=== PATIENT | female | born 1990 | race Hispanic/Latino ===

== ENCOUNTER 2021-01-25 18:26 | Inpatient (IN) | payer OTHER ==
[~2021-01-25] VITALS: Ht 170.2 cm; Wt 110.1 kg
[2021-01-25] MEDS ORDERED: ACET325C5 PO (18:50)
[2021-01-25] MEDS ORDERED: PRENTAB9 PO (18:51)
[2021-01-25] MEDS ORDERED: CALC500C15 PO (18:51)
[2021-01-25 19:28] VITALS: BP 109/67
[2021-01-25 19:39] LABS: HEMOGLOBIN 12.4 g/dl (12.0-15.5); MEAN CORPUSCULAR HEMOGLOBIN 32.4 pg (27.0-33.0); MEAN CORPUSCULAR HGB CONC 34.4 g/dl (32.0-36.5); PLATELET COUNT, AUTOMATED 181 10^3/uL (150-450); RED BLOOD COUNT 3.83 10^6/uL (4.00-5.40); WHITE BLOOD COUNT 11.4 10^3/uL (4.0-10.0)
[2021-01-25] MEDS ORDERED: miSOPROStol 50MCG 1/2 TABLET PO ONE (20:20)
[2021-01-25] MEDS ORDERED: LACTATED RINGER'S 1000 ML IV ONE (20:20)
[2021-01-25] MEDS ORDERED: LR 1,000 ML IV SCH (20:20)
[2021-01-25 20:40] VITALS: BP 109/69
--- NOTE | 2021-01-25 21:01 | HPEPDOC ---
Obstetrical History & Physical General Date of Admission Jan 25, 2021 at 18:26 Primary Care Physician: Solitario Ashby MD History of Present Illness 29 YO A 2 LMP 04/14/2020 EDC 01/19/21 AT 40.6 WEEKS FOR IOL Chief Complaint: Other (INDUCTION OF LABOR) Information Provided By: Patient Age: 29 : 6 Term: 3 Pre-term: 0 Abortions: 2 Livin Care Care: Good Care Number of Visits: 7 Dating Final EDC: Jan 19, 2021 Final EDC for Daily Update: Jan 19, 2021 Final EDC by: LMP (01/19/21) LMP: Jan 19, 2021 1st Trimester Date: Jan 20, 2020 Weeks + Days: 12.1 Estimated Date of Confinement: Jan 19, 2021 EGA at Admission: 40.6 Antepartum Course Diagnos(e)s POST TERM GESTATION Height (inches): 5.7 Pre- weight (lbs.): 205 Admission Weight (lbs.): 237 Change in Weight (lbs.): 32 Past Medical History Past Obstetrical History #1: Past Obstetrical History: Multigravida Date of Delivery: Jul 06, 2015 Type of Delivery: Spontaneous Vaginal Del. Sex of : Female Weight of Infant (grams): 2722 Complications: No Past Obstetrical History #2: Past Obstetrical History: Multigravida Date of Delivery: Jun 19, 2014 Gestation: 41 Type of Delivery: Spontaneous Vaginal Del. Sex of : Female Weight of (grams): 3629 Complications: No Past Obstetrical History #3: Past Obstetrical History: Multigravida Date of Delivery: Oct 31, 2010 Gestation: 40 Type of Delivery: Spontaneous Vaginal Del. Sex of Infant: Male Weight of Infant (grams): 3629 Complications: No LAUNDRY AID History: Spontaneous (2006 8 WEEKS / 2012 10 WEEKS SPONTAOUS ) Past Medical History Medical History NO MEDICAL ISSUES Surgical History: Tonsilectomy Family History Significant Family History: Diabetes, Other (DIMENTIA) Social History Social history NO RECREATIONAL DRUGS NO VAPING TRANSPORTATION LEAD Marital Status: Family situation: Spouse/partner home Psychosocial History: No pertinent psych hx * Smoker: non-smoker Alcohol: Denies Drugs: denies Abuse Violence Screening Have you been hit/kicked/slapp: No Have you been sexually assault: No Imunizations Tdap status: current Influenza Status: current Allergies Coded Allergies: No Known Allergies (Unverified , 01/25/21) Medications Scheduled No.137/Iron/Folic Acd ( Vitamin Tablet) 1 Each Tablet, 1 TAB PO DAILY Miscellaneous Medications Acetaminophen (Tylenol) 325 Mg Capsule, 500 MG PO Calcium Carbonate (Antacid) 200 Mg Tab.chew, 500 MG PO Physical Examination Physical Examination GENERAL: Alert and oriented times three. BREAST: . ABDOMEN: Gravid and non-tender to touch. FETUS: Is vertex (VTX) by sterile vaginal examination (SVE), fetus is vertex (VTX) by Morris. HEART RATE: Regular rate and rhythm. LUNGS: Clear to auscultation (CTA). EXTREMITIES: No edema. No clonus. Deep tendon reflexes (DTRs) + . Other physical findings SF HEIGHT 40 VERTEX ORI NON TENDER UTERUS TATTOOS Vital Signs/I&O Vital Signs Date Time Temp Pulse Resp B/P (MAP) Pulse Ox O2 Delivery O2 Flow Rate FiO2 01/25/21 19:28 98.4 67 109/67 (81) Laboratory Data 24H LABS Laboratory Tests 2 01/25/21 19:01: Serology Scanned Report Hepatitis B Testing 01/25/21 19:26: Nucleated Red Blood Cells % (auto) 0.0 CBC/BMP Laboratory Tests 01/25/21 19:26 Pertinent Laboratoy Data Blood Type: O+ RBC Antibody Screen: Negative HIV: Negative Hepatitis B: Negative Hepatitis C: Negative Rapid Plasma Reagin: Nonreactive Rubella: Immune Varicella: Immune Chlamydia/Gonorrhea: Negative Group B Streptococcus: Negative Cystic Fibrosis: Negative Anatomy Ultrasound Ultrasound Date: Aug 28, 2020 Placenta Location: Anterior Normal Anatomy: Yes Placenta Previa: No Estimated Weight (grams): 263 Steroid Therapy Steroid Therapy: No Vaginal Examination Dilation: 2cm Effacement: 50% Station: -3 Cervical Consistency: Medium Cervical Position: Posterior Presentation: Cephalic presentation Position: Vertex (occiput) Assessment Heart Rate (FHR): 140 Variability: Moderate Accelerations: Present Decelerations: None Tocometer Contractions: No Assessment/Plan Assessment 29-year-old G 6 para (P 3 at 40.6 weeks by 12.2 -week ultrasound. Presents to Labor and Delivery (L&D) IOL . Plan Admit and orient. Line Installation Supervisor and consent. Diet: REGULAR Group B Streptococcus (GBS) [negative]. Labs and intravenous (IV) per unit protocol. Counseled on Pitocin and induction of labor (IOL).REVIEWED MISOPROSTOL AND COOK'S CATHETER Lactated Ringers (LR): Bolus 1000 mL, then at 125 mL/hr. Anticipate [normal spontaneous delivery ()]. C-S as appropriate. Labor and Delivery Counseling REVIEWED IOL RISKS RE INCREASE TACHYCARDIA, TACHYSYSTOLE, RISK DISTRESS RISK INCREASE CS INCREASE IN OPERATIVE DELIVERY , PPH BLOOD TRANSFUSION INCREASE RISK HYSTERECTOMY LIFE THREATENING BLEEDING SCALP LACERATION CEPHALOHEMATOMA , SUBDURAL HEMATOMA INCREASE RISK EPISIOTOMY, LACERATION TO BLADDER BOWEL URETHRA RECTUM REPAIR OF SPONTANEOUS TEARS . EXPRESSED UNDERSTANDING CONSENTED TO PROCEED . NO CONTRACTIONS START WITH MISOPROSTOL 50 MG PO Solitario Ashby MD Jan 25, 2021 20:59
[2021-01-25 21:47] VITALS: BP 115/60
[2021-01-25 22:48] VITALS: BP 111/65
[2021-01-25 23:08] VITALS: BP 101/54
[2021-01-26] VITALS (31 sets, daily range): BP systolic 92–139; BP diastolic 50–88
[2021-01-26] MEDS ORDERED: miSOPROStol 50MCG 1/2 TABLET PO ONE (00:45)
[2021-01-26] MEDS ORDERED: OXYTOCIN INJ 10 UNITS/ML VIAL (J2590) IV PRN (08:00)
[2021-01-26] MEDS ORDERED: OXYTOCIN DRIP 30 UNITS in IV 1 EA IV SCH (08:00)
--- NOTE | 2021-01-26 08:05 | IPNPDOC ---
Text Note Date of Service The patient was seen on 01/26/21. NOTE 01/26/21 0730 AM REVIEWED NST CATEGORY 1 STRIP OCCASIONAL CONTRACTIONS NOTED NO DECELERATIONS MODERATE VARIABILITY . PELVIC EXAM CERVIX CHANGE ANTERIOR SOFT 70% EFFACED 3 CM BULGING MEMBRANES OT POSITION -3 STATION. PLAN DISCUSSED START WITH PITOCIN WHEN PAIN MANAGEMENT ADDRESSED AROM GBS NEGATIVE . ANTICIPATE VAGINAL DELIVERY . SAFE TO PROCEED VS,Fishbone, I+O VS, Fishbone, I+O Laboratory Tests 01/25/21 19:26 Vital Signs Date Time Temp Pulse Resp B/P (MAP) Pulse Ox O2 Delivery O2 Flow Rate FiO2 01/26/21 07:26 64 18 126/71 (89) 01/26/21 06:17 98.4 Solitario Ashby MD Jan 26, 2021 08:05
[2021-01-26] MEDS ORDERED: FENTANYL 2MCG/ML ROPIVACAINE 0.2% IN 0.9% NACL 100ML IVBAG As Ordered ONE (10:42)
[2021-01-26] MEDS ORDERED: NALOXONE INJ 0.4MG/1ML VIAL (J2310 PER 1MG) IV PRN (11:00)
[2021-01-26] MEDS ORDERED: LACTATED RINGER'S 1000 ML IV PRN (11:00)
[2021-01-26] MEDS ORDERED: EPIDURAL COMMENT XX SCH (11:00)
[2021-01-26] MEDS ORDERED: FENTANYL/ROPIVACAINE/NACL BAG 100 ML EPIDURAL SCH (11:00)
[2021-01-26] MEDS ORDERED: REFRIGERATOR IV KEYS XX PRN (11:00)
[2021-01-26] MEDS ORDERED: ePHEDrine SULFATE 25 MG/5 ML(5MG/ML) SYRINGE IV PRN (11:00)
[2021-01-26] MEDS ORDERED: diphenhydrAMINE 50MG/ML VIAL (J1200) IV PRN (11:00)
[2021-01-26] MEDS ORDERED: ONDANSETRON 4MG/2ML VIAL IV PRN (11:00)
[2021-01-26] MEDS ORDERED: EPIDURAL/PCA KEYS XX PRN (11:00)
[2021-01-26 12:49] LABS: CORD GAS ABE V -10.4; CORD GAS HCO3 V 18.1 MEQ/L; CORD GAS O2 SAT V 41.4 %; CORD GAS PCO2 V 49.3 mmHg; CORD GAS PH V 7.182 UNITS; CORD GAS PO2 V 21.8 mmHg; CORD GAS SBC V 15.2 MEQ/L; CORD GAS TCO2 V 19.6 MEQ/L
[2021-01-26 12:51] LABS: CORD GAS O2 SAT A < 15.0 %; CORD GAS PO2 A 10.7 mmHg
[2021-01-26 12:52] LABS: CORD GAS ABE A -9.4; CORD GAS HCO3 A 21.5 MEQ/L; CORD GAS PCO2 A 69.4 mmHg; CORD GAS PH A 7.109 UNITS; CORD GAS TCO2 A 23.6 MEQ/L
--- NOTE | 2021-01-26 13:57 | DNPDOC ---
[facility] Delivery Note Delivery Note Item Value Date Time Cord Arterial Blood pH 7.109 UNITS 01/26/21 1243 Cord Arterial Blood PCO2 69.4 mmHg 01/26/21 1243 Cord Arterial Blood PO2 10.7 mmHg 01/26/21 1243 Cord Arterial Blood HCO3 21.5 MEQ/L 01/26/21 1243 Cord Arterial Blood Total CO2 23.6 MEQ/L 01/26/21 1243 Cord Arterial Blood Base Excess -9.4 01/26/21 1243 Cord Arterial Base Excess (Standard MEQ/L 01/26/21 1243 Cord Arterial Bld Oxygen Saturation < 15.0 % 01/26/21 1243 Cord Venous Blood pH 7.182 UNITS 01/26/21 1244 Cord Venous Blood PCO2 49.3 mmHg 01/26/21 1244 Cord Venous Blood PO2 21.8 mmHg 01/26/21 1244 Cord Venous Blood HCO3 18.1 MEQ/L 01/26/21 1244 Cord Venous Blood Total CO2 19.6 MEQ/L 01/26/21 1244 Cord Venous Base Excess (Actual) -10.4 01/26/21 1244 Cord Venous Base Excess (Standard) 15.2 MEQ/L 01/26/21 1244 Cord Venous Blood Oxygen Saturation 41.4 % 01/26/21 1244 DATE OF DELIVERY: 01/26/2021 PREDELIVERY DIAGNOSIS: 40.7 weeks' gestation and labor. POST DELIVERY DIAGNOSIS: Delivered. PROCEDURE: [Spontaneous vaginal delivery/, had 1 vacuum to 40 mmhg to realign head then removed . DAYTIME BABYSITTER: Dr. alan Ashby ANESTHESIA: epidural ESTIMATED BLOOD LOSS: 200 mL. FINDINGS: 6 pound 10 ounce male infant, Score 7/9 , nuchal cord times x1 meconium terminal . DELIVERY SUMMARY: Patient is a 30-year-old 6 now para 4 who was admitted to labor and delivery for Solitario Wei MD Jan 26, 2021 13:55
[2021-01-26] MEDS ORDERED: ANUSOL HC CREAM 30GM TOP PRN (14:00)
[2021-01-26] MEDS ORDERED: ACETAMINOPHEN TAB 650MG DOSE (2X325MG) PO PRN (14:00)
[2021-01-26] MEDS ORDERED: METHYLERGONOVINE MALEATE 0.2 MG TAB PO PRN (14:00)
[2021-01-26] MEDS ORDERED: IBUPROFEN 600MG TAB PO PRN (14:00)
[2021-01-26] MEDS ORDERED: MOM 30ML SUSPENSION UDC PO PRN (14:00)
[2021-01-26] MEDS ORDERED: MEASLES,MUMPS,RUBELLA VACCINE INJ (MMR-II) (90707) SC SCH (14:00)
[2021-01-26] MEDS ORDERED: DIBUCAINE 1% OINTMENT 30GM TOP PRN (14:00)
[2021-01-26] MEDS ORDERED: RHOGAM 300 MCG (1500 IU) INJ (J2790) IM SCH (14:00)
[2021-01-26] MEDS ORDERED: OXYTOCIN DRIP 30 UNITS in IV 1 EA IV ONE (14:00)
[2021-01-26] MEDS: IBUPROFEN 800 MG TAB PO PRN (16:32)
[2021-01-26] MEDS: DOCUSATE SODIUM 100MG CAPSULE PO PRN (19:30)
[2021-01-26] MEDS: ACETAMINOPHEN 500 MG TAB PO PRN (19:30)
[2021-01-26] MEDS: PRENATAL VITAMINS CHEWABLE TABLET PO SCH (20:06)
[2021-01-27] MEDS: IBUPROFEN 800 MG TAB PO PRN ×3 (01:45→20:13)
[2021-01-27] MEDS: ACETAMINOPHEN 500 MG TAB PO PRN ×2 (05:36→17:16)
[2021-01-27 05:54] VITALS: BP 103/59
--- NOTE | 2021-01-27 06:52 | IPNPDOC ---
Progress Note Date of Service: Jan 27, 2021 Day#: 1 Progress Note SUBJECT:30-year-old 6 now Para 4 status post uncomplicated spontaneous vaginal delivery at 40.7weeks' at on 02/25/2021 of a male 6 pounds 10 ounces 3050 grams) with post vaginal mid line episiotomy and repair, doing well day # 1 . She has been ambulating, voiding spontaneously without issue and tolerating regular diet. Breast feeding without issue. Reports lochia is [like a normal period]. Patient is ambulating well. [Reports some cramping with . Denies any pain. Voiding and stooling without difficulty]. OBJECTIVE: VITAL SIGNS: Within normal limits, afebrile. Alert and oriented times three. Breath sounds clear to auscultation. Heart rate: Regular rate and rhythm, no murmurs, rubs or gallops. Abdomen: Fundus firm at U-2. Soft, NTTP. [Minimal] lochia. ASSESSMENT: 30 year-old 6 now Para 4 status post uncomplicated spontaneous vaginal delivery after presenting iol with spontaneous rupture of membranes (SROM), delivered 40.7 weeks', doing well on day 1. Vitals within normal limits, afebrile, hemodynamically stable with no evidence of infection. PLAN: 1. Discharge to home tomorrow. 2. Tylenol and Motrin for pain. 3. Encourage breast feeding and ambulation. 4. NEXPLANON FOR CONTROL 5. Routine PP visit in 6 weeks in clinic. 6. Discussed return precautions at length. [facility]O Vital Signs Date Time Temp Pulse Resp B/P (MAP) Pulse Ox O2 Delivery O2 Flow Rate FiO2 01/27/21 05:54 98.1 68 16 103/59 (74) 99 Room Air I&O- Last 24 Hours up to 6 AM 01/27/21 06:00 Intake Total 2820 ml Output Total 2050 ml Balance 770 ml Laboratory Data 24H LABS Laboratory Tests 2 01/26/21 12:43: Cord Arterial Blood pH 7.109, Cord Arterial Blood PCO2 69.4, Cord Arterial Blood PO2 10.7, Cord Arterial Blood HCO3 21.5, Cord Arterial Blood Total CO2 23.6, Cord Arterial Blood Base Excess -9.4, Cord Arterial Base Excess (Standard , Cord Arterial Bld Oxygen Saturation < 15.0 01/26/21 12:44: Cord Venous Blood pH 7.182, Cord Venous Blood PCO2 49.3, Cord Venous Blood PO2 21.8, Cord Venous Blood HCO3 18.1, Cord Venous Blood Total CO2 19.6, Cord Venous Base Excess (Actual) -10.4, Cord Venous Base Excess (Standard) 15.2, Cord Venous Blood Oxygen Saturation 41.4 Solitario Ashby MD Jan 27, 2021 06:52
--- NOTE | 2021-01-27 08:12 | IPN ---
PROGRESS NOTE DATE: 01/26/2021 This patient and requested circumcision of a male . After discussing risks and benefits of circumcision, the medical, nonmedical indications, the penile block and aftercare, they expressed understanding of penile block, aftercare and bleeding, signed the consent form. All questions were answered, a 20-minute discussion. We await clearance by the bin cleaner. Chava Diaz OB
[2021-01-27 08:52] LABS: HEMATOCRIT 35.5 % (36.0-47.0); HEMOGLOBIN 11.9 g/dl (12.0-15.5); MEAN CORPUSCULAR HEMOGLOBIN 32.2 pg (27.0-33.0); MEAN CORPUSCULAR HGB CONC 33.5 g/dl (32.0-36.5); MEAN CORPUSCULAR VOLUME 95.9 fl (80.0-96.0); PLATELET COUNT, AUTOMATED 155 10^3/uL (150-450); WHITE BLOOD COUNT 11.8 10^3/uL (4.0-10.0)
[2021-01-27] MEDS: PRENATAL VITAMINS CHEWABLE TABLET PO SCH (09:05)
--- NOTE | 2021-01-27 09:54 | DN ---
DELIVERY NOTE DATE OF DELIVERY: 01/26/2021 TIME OF : GENDER: Male APGARS: 7 and 9 LACERATIONS: ANESTHESIA: epidural ESTIMATED BLOOD LOSS: 200 ml COUNTS: correct DESCRIPTION OF DELIVERY: 30-year-old 6, para 3, admitted for induction of labor at 40-6 weeks of gestation. She had two lots of misoprostol. An epidural in place. Pitocin was started at 2 milliunits per minute and got up to 4. She had some variables of occasional late decelerations. At full dilation with some time between the epidural and delivery, she had spontaneous rupture of membranes with clear liquid. The baby was in POP position, had some lates with poor recovery and the baby was in POP position. We put a vacuum on to realign the head to an OA position with 40 mmHg. We then did one pull to realign it and took the vacuum off. The patient had a spontaneous vaginal delivery over a midline episiotomy of a live male infant weighing 3050 gm, 6 pounds, 10 ounces, score of 7 and 9 and 1 in 5 minutes respectively. Arterial pH 7.10, base access -9.4, venous pH 7.18, base access -10.4. Midline episiotomy was noted. The patient had a slight delay in delivery of the placenta, which she had in her previous delivery. However, placenta was complete with three vessels of cord, membranes and tissue intact. Anterior, posterior and lateral haddad were complete. The cervix was complete. Digital examination rectally, no evidence to enter the sphincter or mucosa. The midline episiotomy was oversewn in the usual fashion with 2-0 Vicryl and on a [id number]. The patient's uterus contract well down on Pitocin. She was sent to recovery in good condition. Chava Diaz OB KALYANID
[2021-01-27 18:00] VITALS: BP 112/63
[2021-01-27] MEDS: DOCUSATE SODIUM 100MG CAPSULE PO PRN (20:13)
[2021-01-28] MEDS: ACETAMINOPHEN 500 MG TAB PO PRN (03:36)
[2021-01-28 06:06] VITALS: BP 111/60
--- NOTE | 2021-01-28 08:15 | IPNPDOC ---
Progress Note Date of Service: Jan 28, 2021 Day#: 2 Progress Note SUBJECT: Cecelia is a 30-year-old 6 now Para 4024 s/p VAVD for NRFHR over 2nd degree perineal laceration doing well day # 1. She has been ambulating, voiding spontaneously without issue and tolerating regular diet. She is formula feeding. Reports lochia is decreasing. Patient is ambulating well. OBJECTIVE: VITAL SIGNS: Within normal limits, afebrile. Alert and oriented times three. RESP: no exaggerated respiratory effort appreciated CARDS: well-perfused, normal HR Abdomen: Fundus firm at U-2. Soft, NTTP. ASSESSMENT: Cecelia is a 30-year-old 6 now Para 4024 s/p VAVD for NRFHR over 2nd degree perineal laceration doing well day # 1. Vitals within normal limits, afebrile, hemodynamically stable with no evidence of infection. PLAN: 1. Discharge to home today. 2. Tylenol and Motrin for pain. 3. Encourage regular diet and ambulation as tolerated. 4. Routine PP visit in 6 weeks in clinic. 5. Discussed return precautions at length. VS, I&O, 24H, Fishbone Vital Signs/I&O Vital Signs Date Time Temp Pulse Resp B/P (MAP) Pulse Ox O2 Delivery O2 Flow Rate FiO2 01/28/21 06:06 97.9 62 18 111/60 (77) 01/27/21 05:54 99 Room Air I&O- Last 24 Hours up to 6 AM 01/28/21 06:00 Intake Total 1440 ml Balance 1440 ml Laboratory Data 24H LABS Laboratory Tests 2 01/27/21 08:32: Nucleated Red Blood Cells % (auto) 0.0 CBC/BMP Laboratory Tests 01/27/21 08:32 FRANK STEWARD DO Jan 28, 2021 08:15
[2021-01-28] MEDS: PRENATAL VITAMINS CHEWABLE TABLET PO SCH (09:30)
== END 2021-01-28 13:35 | disposition home or self-care (01) | DRG 807 ==
LOC: M LDI 18:26 → M OBS 01-26 16:18
PROVIDERS: ADMIT Obstetrics & Gynecology; ATTEND Obstetrics & Gynecology
PROC: 0KQM0ZZ Repair Perineum Muscle, Open Approach (ICD-10-PCS; 2021-01-25)
PROC: 3E0P7GC Introduction of Other Therapeutic Substance into Female Reproductive, Via Natural or Artificial Opening (ICD-10-PCS; 2021-01-25)
PROC: 10D07Z6 Extraction of Products of Conception, Vacuum, Via Natural or Artificial Opening (ICD-10-PCS; principal; 2021-01-26)
DX: O48.0 Post-term pregnancy (principal); Z37.0 Single live birth; Z3A.40 40 weeks gestation of pregnancy; O69.81X0 Labor and delivery complicated by cord around neck, without compression, not applicable or unspecified; O76 Abnormality in fetal heart rate and rhythm complicating labor and delivery; O70.1 Second degree perineal laceration during delivery

== ENCOUNTER → 2021-08-20 | Outpatient (CLI) | payer OTHER ==
[~2021-08-20] MED LIST: ACET325C5 PO; CALC500C15 PO; PRENTAB9 PO
== END ==
LOC: M OUTALCOH 09:29
PROVIDERS: ATTEND Psychiatry & Neurology Psychiatry
DX: Z03.89 Encounter for observation for other suspected diseases and conditions ruled out (principal)

== ENCOUNTER 2021-08-27 09:00 | Outpatient (RCR) | payer OTHER | END 2021-09-02 | LOC: M OUTALCOH 09:00 | PROVIDERS: ATTEND Psychiatry & Neurology Psychiatry | DX: F10.10 Alcohol abuse, uncomplicated (principal) ==

== ENCOUNTER 2021-10-02 10:00 | Outpatient (RCR) | payer OTHER | END 2021-10-03 | LOC: M OUTALCOH 10:00 | PROVIDERS: ATTEND Psychiatry & Neurology Psychiatry | DX: F10.10 Alcohol abuse, uncomplicated (principal) ==

== ENCOUNTER 2021-10-30 09:52 | Outpatient (RCR) | payer OTHER | END 2021-11-03 | LOC: M OUTALCOH 09:52 | PROVIDERS: ATTEND Psychiatry & Neurology Psychiatry | DX: F10.10 Alcohol abuse, uncomplicated (principal) ==

== ENCOUNTER → 2021-12-01 | Outpatient (RCR) | payer OTHER | LOC: M OUTALCOH 11-06 10:49 | PROVIDERS: ATTEND Psychiatry & Neurology Psychiatry | DX: F10.10 Alcohol abuse, uncomplicated (principal) ==

== ENCOUNTER 2021-12-25 11:00 | Outpatient (RCR) | payer OTHER | END 2022-01-01 | LOC: M OUTALCOH 11:00 | PROVIDERS: ATTEND Psychiatry & Neurology Psychiatry | DX: F10.10 Alcohol abuse, uncomplicated (principal) ==

== ENCOUNTER → 2022-09-11 | Outpatient (CLI) | payer OTHER | LOC: M OUTALCOH 08:21 | PROVIDERS: ATTEND Psychiatry & Neurology Psychiatry | DX: Z02.9 Encounter for administrative examinations, unspecified (principal) ==

== ENCOUNTER 2022-10-12 14:48 | Outpatient (RCR) | payer OTHER | END 2022-11-03 | LOC: M OUTALCOH 14:48 | PROVIDERS: ATTEND Psychiatry & Neurology Psychiatry | DX: F10.10 Alcohol abuse, uncomplicated (principal) ==

== ENCOUNTER → 2023-01-27 | Outpatient (CLI) | payer OTHER | LOC: M OUTALCOH 08:08 | PROVIDERS: ATTEND Psychiatry & Neurology Psychiatry | DX: Z13.39 Encounter for screening examination for other mental health and behavioral disorders (principal) ==